=== PATIENT | female | born 1970 | race African-American/Black ===

== ENCOUNTER 2017-07-31 09:47 | Emergency (ER) | payer MEDICAID ==
[~2017-07-31] VITALS: Ht 172.7 cm; Wt 62.0 kg
[~2017-07-31 09:47] MED LIST: METR500T4
[2017-07-31 10:58] VITALS: BP 133/83
== END 2017-07-31 15:11 | disposition left against medical advice (07) ==
LOC: ER 11:32
DX: M54.9 Dorsalgia, unspecified (principal); Z53.21 Procedure and treatment not carried out due to patient leaving prior to being seen by health care provider